=== PATIENT | male | born 1965 | race Two or more races ===

== ENCOUNTER 2025-09-26 18:13 | Emergency (ER) | payer MEDICAID ==
[~2025-09-26] VITALS: Ht 177.8 cm; Wt 73.0 kg
--- NOTE | 2025-09-26 19:16 | ED.PDOC ---
History of Present Illness(SKN HPI Comments 60 year-old male presents to the ED with a chief complaint of gangrene to the R foot, great toe. Patient reports X1 month ago being seen for a blood blister on the R great toe, where he was prescribed antibiotics and took them for about 1 week. Patient reports over the course of one month, gangrene has grown in size, as well as, increase R foot pain. Patient is able to ambulate at this time, using a cane to assist. Patient has no further complaints or modifying factors. REVIEW OF SYSTEMS: General: No fever, no chills, or fatigue HEENT: No sore throat, no earache, no congestion, no neck pain. Cardiac: No chest pain. No palpitations. Lungs: No shortness of breath, no cough. GI: No nausea, no vomiting, no diarrhea, no constipation, no abdominal pain : No dysuria, frequency, or urgency. No hematuria. Musculoskeletal: + joint pain , no joint swelling, no extremity edema. Skin: + R foot great toe necrotic. No rash, no itching. Neuro: No headache, no dizziness, no weakness (And as sated in HPI) PHYSICAL EXAM: General: Awake, alert and oriented. No acute distress. Skin: Skin in warm, dry and intact. Appropriate color for ethnicity. HEENT: The head is normocephalic and atraumatic. Conjunctivae are clear without exudates or hemorrhage. Sclera is non-icteric. Eyelids are normal in appearance without swelling or lesions. Oral mucosa is pink and moist Neck: The neck is supple with normal range of motion. No JVD. Cardiac: Heart rate and rhythm are normal. No murmurs, gallops, or rubs are auscultated. Respiratory: No signs of respiratory distress. Lung sounds are clear in all lobes bilaterally without rales, rhonchi, or wheezes. Abdominal: Abdomen is soft, non-tender without distention, guarding or rigidity. Bowel sounds are present and normoactive in all four quadrants. Extremities: (+) R foot, great toe necrotic. erythemitis, cool to touch, diminished DV pulses; sensation is intact in the R foot Neurological: The patient is awake, alert and oriented to person, place, and time with normal speech. Speech is clear. There is no facial asymmetry. Psychiatric: Appropriate mood and affect. Good judgement and insight. Chief Complaint: Wound Check Time Seen by MD: 18:40 History of Present Illness: Medications, Allergies Allergies: Coded Allergies: Codeine (Verified Allergy, Unknown, 09/26/25) Information Source: Patient Mode of Arrival: Ambulatory Severity: Moderate Duration: Since onset Mechanism: Spontaneous Onset Past Medical History PAST MEDICAL HISTORY: Asthma, COPD, Seizures Surgical History: Denies all surgeries Family History Family History: Reviewed,noncontributory to illness, No family hx of Cancer, No family hx of DM, No family hx of Heart magnolia, No family hx of HTN, No family hx ofKidney magnolia, No family hx of Liver magnolia, No family hx of Lung magnolia, No family hx of Stroke Social History Smoker: Unknown Alcohol: Unknown Drugs: Denies Drug Use Lives In: Home Was a procedure done? Was a procedure done?: No Differential Diagnosis (INTG) Differential Diagnosis: Cellulitis, Contact Dermatitis, Gangrene X-Ray, Labs, Meds, VS Vital Signs Date Time Temp Pulse Resp B/P (MAP) Pulse Ox O2 Delivery O2 Flow Rate FiO2 09/26/25 19:08 98.2 98 19 111/68 (82) 98 98.2 09/26/25 18:20 98.3 103 18 138/77 97 98.3 Lab Test 09/26/25 21:12 09/26/25 19:17 Range/Units Urine Color Light-yellow Yellow Urine Clarity Clear Clear Urine pH 7.0 5.0-9.0 Urine Specific [place] > 1.050 H 1.001-1.035 Urine Protein Negative Negative Urine Ketones Negative Negative Urine Blood Negative Negative /uL Urine Nitrite Negative Negative Urine Bilirubin Negative Negative Urine Urobilinogen Normal Negative mg/dL Urine Leukocyte Esterase Negative Negative /uL Urine RBC 2 0 - 3 /hpf Urine Microscopic WBC < 1 0-3 /HPF Urine Squamous Epithelial Cells None seen <5 /hpf Urine Bacteria Few H None Seen /hpf Urine Glucose Normal Normal mg/dL White Blood Count 11.1 H 4.4-10.8 10^3/uL Red Blood Count 5.30 4.5-5.90 10^6/uL Hemoglobin 17.0 13.5-17.5 g/dL Hematocrit 50.3 41.0-53.0 % Mean Corpuscular Volume 94.9 80.0-100.0 fL Mean Corpuscular Hemoglobin 32.1 H 28.0-32.0 pg Mean Corpuscular Hemoglobin Concent 33.8 32.0-36.0 g/dL Red Cell Distribution Width 12.9 11.8-14.3 % Platelet Count 248 140-450 10^3/uL Mean Platelet Volume 7.3 6.9-10.8 fL Neutrophils (%) (Auto) 73.1 37.0-80.0 % Lymphocytes (%) (Auto) 17.5 10.0-50.0 % Monocytes (%) (Auto) 6.9 0.0-12.0 % Eosinophils (%) (Auto) 1.9 0.0-7.0 % Basophils (%) (Auto) 0.6 0.0-2.0 % Neutrophils # (Auto) 8.1 1.6-8.6 10 ^3/uL Lymphocytes # (Auto) 1.9 0.4-5.4 10 ^3/uL Monocytes # (Auto) 0.8 0-1.3 10 ^3/uL Eosinophils # (Auto) 0.2 0-0.8 10 ^3/uL Basophils # (Auto) 0.1 0-0.2 10 ^3/uL Nucleated Red Blood Cells 0.0 % Platelet Estimate Adequate Red Blood Cell Morphology Normal Sodium Level 141 136-145 mmol/L Potassium Level 3.8 3.5-5.1 mmol/L Chloride Level 104 98-107 mmol/L Carbon Dioxide Level 29 20-31 mmol/L Anion Gap 8 5-15 Blood Urea Nitrogen 10 9-23 mg/dL Creatinine 1.11 0.700-1.30 mg/dL Glomerular Filtration Rate Calc 76 >90 mL/min BUN/Creatinine Ratio 9.0 L 10.0-20.0 Serum Glucose 84 74-106 mg/dL Lactic Acid Level 1.7 0.4-2.0 mmol/L Calcium Level 10.1 8.7-10.4 mg/dL Total Bilirubin 0.3 0.2-1.0 mg/dL Aspartate Amino Transferase (AST) 24 13-40 U/L Alanine Aminotransferase (ALT) 31 7-40 U/L Alkaline Phosphatase 108 46-116 U/L Total Protein 7.6 5.7-8.2 g/dL Albumin 4.7 3.2-4.8 g/dL Current Medications Medications (Trade) Dose Ordered Sig/Malcolm Route Start Time Stop Time Status Last Admin Sodium Chloride 1,000 ml @ 1,000 mls/hr Q1H ONCE IV 09/26/25 19:15 09/26/25 20:14 DC 09/26/25 19:32 Piperacillin Sod/ Tazobactam Sod 100 ml @ 100 mls/hr ONCE ONCE IV 09/26/25 19:15 09/26/25 20:14 DC 09/26/25 19:32 Vancomycin HCl 250 ml @ 250 mls/hr ONCE ONCE IV 09/26/25 19:15 09/26/25 20:14 DC 09/26/25 20:32 Lamotrigine (LaMICtal TABLET) 200 mg ONCE ONCE PO 09/26/25 21:30 09/26/25 21:31 DC 09/26/25 21:32 Levetiracetam (Keppra Tablet) 500 mg ONCE ONCE PO 09/26/25 21:30 09/26/25 21:31 DC 09/26/25 21:31 Acetaminophen/ Hydrocodone Bitart ([place] 10/325MG Tab) 1 tab ONCE ONCE PO 09/26/25 21:30 09/26/25 21:31 DC 09/26/25 21:32 Time of 1ST Reevaluation: 19:29 Reevaluation 1ST: Unchanged Patient Education/Counseling: Diagnosis, Treatment, Need For Follow Up Family Education/Counseling: No Family Present SEPSIS Sepsis Screen Date sepsis recognized/suspect: Sep 26, 2025 Time Sepsis recognized/suspect: 1819 Recent Procedure: No On Antibiotic Therapy: No Respiratory Rate >20: No Heart Rate >90: Yes (103) Temp<36 C (96.8 F) or >38.3 C: No SBP <90 or MAP <65 mmHG: No New Acute Mental Status Change: No Is the patient on CPAP, BIPAP,: No Physician Orders Vital Signs Q1HR (09/26/25 19:01) Saline Lock (09/26/25 19:01) Razor Sharpener (09/26/25 ) Rectal/Core Temps Only (09/26/25 19:01) Notify Md If Abnormal Vs (09/26/25 19:01) Blood Culture (09/26/25 19:01) Chest Xray 1 View (09/26/25 19:01) Ct Angio Lower Extremity (09/26/25 19:01) Sodium Chloride 0.9% (09/26/25 19:15) Vital Signs Date Time Temp Pulse Resp B/P (MAP) Pulse Ox O2 Delivery O2 Flow Rate FiO2 09/26/25 19:08 98.2 98 19 111/68 (82) 98 98.2 09/26/25 18:20 98.3 103 18 138/77 97 98.3 Laboratory Tests Test 09/26/25 19:17 Lactic Acid Level 1.7 mmol/L (0.4-2.0) White Blood Count 11.1 10^3/uL (4.4-10.8) H Medications Medications Dose Ordered Sig/Malcolm Route Start Time Stop Time Status Last Admin Dose Admin Acetaminophen/ Hydrocodone Bitart 1 tab ONCE ONCE PO 09/26/25 21:30 09/26/25 21:31 DC 09/26/25 21:32 Lamotrigine 200 mg ONCE ONCE PO 09/26/25 21:30 09/26/25 21:31 DC 09/26/25 21:32 Levetiracetam 500 mg ONCE ONCE PO 09/26/25 21:30 09/26/25 21:31 DC 09/26/25 21:31 Piperacillin Sod/ Tazobactam Sod 100 ml @ 100 mls/hr ONCE ONCE IV 09/26/25 19:15 09/26/25 20:14 DC 09/26/25 19:32 Sodium Chloride 1,000 ml @ 1,000 mls/hr Q1H ONCE IV 09/26/25 19:15 09/26/25 20:14 DC 09/26/25 19:32 Vancomycin HCl 250 ml @ 250 mls/hr ONCE ONCE IV 09/26/25 19:15 09/26/25 20:14 DC 09/26/25 20:32 Departure 1 Departure Time of Disposition: 22:39 Impression: Primary Impression: Necrosis of toe Additional Impression: Cellulitis Critical Care Note Critical Care Time?: No Stability Stability form required: No Heart Score Heart Score: Heart Score Response (Comments) Value History N/A 0 EKG N/A 0 Age N/A 0 Risk Factors N/A 0 Troponin N/A 0 Total 0 I personally scribed for ROMEL ISAAC MD ([email or web address]) on 09/26/25 at 19:16. Electronically submitted by Halie Banks ([email or web address]). I personally scribed for ROMEL ISAAC MD ([employer] MasterTARA) on 09/26/25 at 19:36. Electronically submitted by Halie Banks (NORI). I personally scribed for ROMEL ISAAC MD ([employer] MasterTARA) on 09/26/25 at 19:36. Electronically submitted by Halie Banks (NORI). ROMEL ISAAC MD Sep 26, 2025 19:16
[2025-09-26] MEDS: SODIUM CHLORIDE 0.9% 1,000 ML IV ONE ×2 (19:21→19:32)
[2025-09-26] MEDS: PIPERACILLIN-TAZOB 3.375GM 100 ML IV ONE (19:32)
[2025-09-26 19:45] LABS: Hematocrit 50.3 % (41.0-53.0); Hemoglobin 17.0 g/dL (13.5-17.5); Mean Corpuscular Hemoglobin 32.1 pg (28.0-32.0); Mean Corpuscular Volume 94.9 fL (80.0-100.0); Nucleated Red Blood Cells % 0.0 %
[2025-09-26 20:01] LABS: Alanine Aminotransferase 31 U/L (7-40); Albumin 4.7 g/dL (3.2-4.8); Alkaline Phosphatase 108 U/L (46-116); Anion Gap 8 (5-15); BUN/Creatinine Ratio 9.0 (10.0-20.0); Bilirubin, Total 0.3 mg/dL (0.2-1.0); Blood Urea Nitrogen 10 mg/dL (9-23); Calcium 10.1 mg/dL (8.7-10.4); Carbon Dioxide 29 mmol/L (20-31); Chloride 104 mmol/L (98-107); Glucose 84 mg/dL (74-106); Potassium 3.8 mmol/L (3.5-5.1); Sodium 141 mmol/L (136-145); Total Protein 7.6 g/dL (5.7-8.2)
[2025-09-26] MEDS: VANCOMYCIN 1GM/250ML KIT 250 ML IV ONE (20:02)
--- NOTE | 2025-09-26 20:54 | DVH ---
CHEST RADIOGRAPH INDICATION: Suspected Sepsis TECHNIQUE: Single frontal view of the chest was obtained COMPARISON: XR CHEST 2 VIEW on DOS: 08/15/25, CT CHEST WO on DOS: 06/08/24, XR CHEST 1 VIEW on DOS: 07/13/21 FINDINGS/IMPRESSION: There is prominence of the interstitial markings. Mildly enlarged cardiomediastinal silhouette. No pleural effusion or pneumothorax. No acute osseous abnormality.
[2025-09-26] MEDS: IOHEXOL 350 MG/ML 100ML IJ ONE (21:30)
[2025-09-26] MEDS: levETIRAcetam 500 MG TAB PO ONE (21:31)
[2025-09-26] MEDS: lamoTRIgine 100 MG TAB PO ONE (21:32)
[2025-09-26] MEDS: HYDROcodone-ACET 10/325MG TAB PO ONE (21:32)
[2025-09-26 21:38] LABS: Urine Protein, UAD Negative (Negative)
[2025-09-26 22:25] LABS: RBC Morphology Normal
--- NOTE | 2025-09-26 22:27 | DVH ---
CTA RIGHT LOWER EXTREMITY WITH CONTRAST INDICATION: Peripheral arterial disease. History of occluded external iliac and distal superficial femoral arteries. COMPARISON: No prior images are available for comparison. TECHNIQUE: Axial CT images of the abdomen and bilateral lower extremities are obtained at 1 mm collimation in the early arterial phase after intravenous contrast administration. Coronal maximum intensity projection (MIP) images are provided. 3-D images of the abdominal aorta and bilateral lower extremity arteries were constructed on an independent workstation. Radiation optimization: All CT scans at this facility use at least one of these dose optimization techniques: Automated exposure control mA and/or kV adjustment per patient size (includes targeted exams where dose is matched to clinical indication) or iterative reconstruction. CONTRAST: 100 mL omnipaque 350 RADIATION DOSE: CTDI: 36 mGy DLP: 1188 mGy-cm FINDINGS: Common iliac: Not included in the exam External iliac: Patent without hemodynamically significant stenosis. Supplied by inferior epigastric and obturator arteries. Internal iliac: Patent without hemodynamically significant stenosis. 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 SFA: The proximal and middle portions are patent without hemodynamically significant stenosis. There is chronic appearing occlusion of the distal SFA at the entrance to the adductor canal. Profunda Femoris: Patent without hemodynamically significant stenosis. Popliteal: Patent without hemodynamically significant stenosis. Reconstituted from collaterals upon emergence from the adductor canal. No aneurysm or abnormal medial deviation is noted. Anterior Tibial: Patent without hemodynamically significant stenosis. Tibioperoneal Trunk: Patent without hemodynamically significant stenosis. Peroneal: Patent without hemodynamically significant stenosis. Posterior Tibial: Patent without hemodynamically significant stenosis. Dorsalis Pedis: The proximal portion is patent without hemodynamically significant stenosis. The more distal portion is not well evaluated due to motion artifact. The common and lateral plantar arteries are patent. ADDITIONAL FINDINGS: No acute abnormality is identified in the visualized portion of the pelvis. No acute osseous abnormality is identified. IMPRESSION: Occluded right external iliac artery. The common femoral artery is supplied by inferior epigastric and obturator arteries. Approximately 2-3 cm chronic appearing occlusion of the distal SFA/proximal popliteal artery within the adductor canal. No significant stenosis is identified below the knee.
[2025-09-26] MEDS ORDERED: IPRATROPIUM BROM 0.5 MG/2.5ML INH SOL NEB PRN (23:30)
[2025-09-26] MEDS ORDERED: MORPHINE SULFATE INJ 2 MG/ml SYRG IV PRN ×2 (23:30)
[2025-09-26] MEDS ORDERED: ALBUTEROL SULF 2.5 MG/0.5ML(0.5%) NEB SOLN NEB PRN (23:30)
[2025-09-26] MEDS ORDERED: DOCUSATE SOD 100 MG CAP PO PRN (23:30)
[2025-09-26] MEDS ORDERED: ACETAMINOPHEN 325 MG TAB PO PRN (23:30)
[2025-09-26] MEDS ORDERED: NITROGLYCERIN 0.4 MG SL TAB SL PRN (23:30)
--- NOTE | 2025-09-26 23:40 | DVHHP2 ---
History of Present Illness Reason for Visit: Necrosis of toe History of Present Illness The patient is a 60-year-old male with past medical history of asthma, COPD, and seizures who presented to [facility] ED with complaint of right foot gangrene. Patient reports that he notice blood blister on his right great toe 1 month ago and was prescribed oral antibiotic regimen for 1 week. Patient reports over the course of 1 month, gangrene has grown in size, increased right foot pain, getting worse that prompted this visit. Patient reports that he had vascular surgery appointment outpatient due to poor blood flow to his right lower extremity. Patient was seen and evaluated in the ED, laboratory data shows WBC 11.1, platelets 248, sodium 141, potassium 3.8, BUN 10, creatinine 1.11, GFR 76, glucose 84, calcium 10.1, blood pressure 111/68, heart rate 98, temperature 98.2 F, O2 saturation 98% on room air. Lower extremity CT a revealing occluded right external iliac artery; the common femoral artery is supplied by inferior epigastric obturator arteries; a proximally 2-3 cm chronic appearing occlusion of the distal SFA/proximal popliteal artery within the abductor cannula; no significant stenosis is identified below the knee. Patient was started on IV antibiotic regimen vancomycin, please see medication orders section in the compu ter. On my assessment, patient denied chest pain, no headache, dizziness, diaphoresis, shortness of breaths, no diarrhea, nausea, vomiting, fever, no chills. Patient was admitted for further evaluation and medical management. Past Medical History Asthma, COPD, Seizures Past Surgical History Denies all surgeries Family History Reviewed, noncontributory to the management of this case. Past Social History The patient lives at home, denies smoking, alcohol or illicit drugs abuse. Review of Systems Constitutional: Yes: Weakness; No: Fever, Chills, Sweats, Malaise, Other Eyes: No: Pain, Vision change, Conjunctivae inflammation, Eyelid inflammation, Other, Redness ENT: No: Ear pain, Ear discharge, Nose pain, Nose discharge, Nose congestion, Mouth pain, Mouth swelling, Throat pain, Throat swelling, Other Respiratory: No: Cough, Dry, Shortness of breath, SOB with excertion, Wheezing, Hemoptysis, Pleuritic Pain, Sputum, Wheezing, Other Cardiovascular: No: Chest Pain, Palpitations, Orthopnea, Paroxysmal Noc. Dyspnea, Edema, Lt Headedness, Other Gastrointestinal: No: Nausea, Vomiting, Abdominal Pain, Diarrhea, Constipation, Melena, Hematochezia, Other Genitourinary: No Dysuria, No Frequency, No Incontinence, No Hematuria, No Retention, No Other Musculoskeletal: No: other, neck pain, shoulder pain, arm pain, back pain, hand pain, leg pain, foot pain Skin: Other (Right foot gangrene); No: Rash, Lesions, Jaundice, Bruising Neurological: No: Weakness, Numbness, Incoordination, Change in speech, Confusion, Seizures, Other Allergies: Coded Allergies: Codeine (Verified Allergy, Unknown, 09/26/25) Exam Vital Signs Vital Signs Date Time Temp Pulse Resp B/P (MAP) Pulse Ox O2 Delivery O2 Flow Rate FiO2 09/26/25 19:08 98.2 98 19 111/68 (82) 98 98.2 General Appearance: Alert, Oriented X3, Cooperative, No acute distress HEENT: Atraumatic, PERRLA, EOMI, Mucous membr. moist/pink Respiratory: Clear to auscultation, Normal air movement Cardiovascular: Regular rate, Normal S1, Normal S2, No murmurs Abdominal: Normal bowel sounds, Soft, No tenderness, No hepatospenomegaly, No masses Extremities: No clubbing, No cyanosis, No edema, Normal pulses, No tenderness/swelling Skin: No rashes, No significant lesion Neuro: Normal speech, Normal tone, Sensation intact, Cranial nerves 3-12 NL, Reflexes 2+, Other (Generalized weakness) Psych/Mental Status: Mental status NL, Mood NL Labs/Xrays Labs Test 09/26/25 21:12 09/26/25 19:17 Range/Units Urine Color Light-yellow Yellow Urine Clarity Clear Clear Urine pH 7.0 5.0-9.0 Urine Specific [place] > 1.050 H 1.001-1.035 Urine Protein Negative Negative Urine Ketones Negative Negative Urine Blood Negative Negative /uL Urine Nitrite Negative Negative Urine Bilirubin Negative Negative Urine Urobilinogen Normal Negative mg/dL Urine Leukocyte Esterase Negative Negative /uL Urine RBC 2 0 - 3 /hpf Urine Microscopic WBC < 1 0-3 /HPF Urine Squamous Epithelial Cells None seen <5 /hpf Urine Bacteria Few H None Seen /hpf Urine Glucose Normal Normal mg/dL White Blood Count 11.1 H 4.4-10.8 10^3/uL Red Blood Count 5.30 4.5-5.90 10^6/uL Hemoglobin 17.0 13.5-17.5 g/dL Hematocrit 50.3 41.0-53.0 % Mean Corpuscular Volume 94.9 80.0-100.0 fL Mean Corpuscular Hemoglobin 32.1 H 28.0-32.0 pg Mean Corpuscular Hemoglobin Concent 33.8 32.0-36.0 g/dL Red Cell Distribution Width 12.9 11.8-14.3 % Platelet Count 248 140-450 10^3/uL Mean Platelet Volume 7.3 6.9-10.8 fL Neutrophils (%) (Auto) 73.1 37.0-80.0 % Lymphocytes (%) (Auto) 17.5 10.0-50.0 % Monocytes (%) (Auto) 6.9 0.0-12.0 % Eosinophils (%) (Auto) 1.9 0.0-7.0 % Basophils (%) (Auto) 0.6 0.0-2.0 % Neutrophils # (Auto) 8.1 1.6-8.6 10 ^3/uL Lymphocytes # (Auto) 1.9 0.4-5.4 10 ^3/uL Monocytes # (Auto) 0.8 0-1.3 10 ^3/uL Eosinophils # (Auto) 0.2 0-0.8 10 ^3/uL Basophils # (Auto) 0.1 0-0.2 10 ^3/uL Nucleated Red Blood Cells 0.0 % Platelet Estimate Adequate Red Blood Cell Morphology Normal Sodium Level 141 136-145 mmol/L Potassium Level 3.8 3.5-5.1 mmol/L Chloride Level 104 98-107 mmol/L Carbon Dioxide Level 29 20-31 mmol/L Anion Gap 8 5-15 Blood Urea Nitrogen 10 9-23 mg/dL Creatinine 1.11 0.700-1.30 mg/dL Glomerular Filtration Rate Calc 76 >90 mL/min BUN/Creatinine Ratio 9.0 L 10.0-20.0 Serum Glucose 84 74-106 mg/dL Lactic Acid Level 1.7 0.4-2.0 mmol/L Calcium Level 10.1 8.7-10.4 mg/dL Total Bilirubin 0.3 0.2-1.0 mg/dL Aspartate Amino Transferase (AST) 24 13-40 U/L Alanine Aminotransferase (ALT) 31 7-40 U/L Alkaline Phosphatase 108 46-116 U/L Total Protein 7.6 5.7-8.2 g/dL Albumin 4.7 3.2-4.8 g/dL PATIENT: NELLY BATRES ACCT: [id number] UNIT: [id number] : 1965 LOC: ER ROOM / BED: / AGE / SEX: 60 / M ADM STATUS: REG ER SERVICE 00 ORDERING PHYSICIAN: ROMEL ISAAC MD PROCEDURE(s): CTALE - CT ANGIO LOWER EXTREMITY REASON: RLE ORDER NUMBER(s): [id number], ACCESSION NUMBER(s): [id number] CTA RIGHT LOWER EXTREMITY WITH CONTRAST INDICATION: Peripheral arterial disease. History of occluded external iliac and distal superficial femoral arteries. COMPARISON: No prior images are available for comparison. TECHNIQUE: Axial CT images of the abdomen and bilateral lower extremities are obtained at 1 mm collimation in the early arterial phase after intravenous contrast administration. Coronal maximum intensity projection (MIP) images are provided. 3-D images of the abdominal aorta and bilateral lower extremity arteries were constructed on an independent workstation. Radiation optimization: All CT scans at this facility use at least one of these dose optimization techniques: Automated exposure control mA and/or kV adjustment per patient size (includes targeted exams where dose is matched to clinical indication) or iterative reconstruction. CONTRAST: 100 mL omnipaque 350 RADIATION DOSE: CTDI: 36 mGy DLP: 1188 mGy-cm FINDINGS: Common iliac: Not included in the exam External iliac: Patent without hemodynamically significant stenosis. Supplied by inferior epigastric and obturator arteries. Internal iliac: Patent without hemodynamically significant stenosis. MACHINE OPERATOR ASSISTANT: Patent without hemodynamically significant stenosis. SFA: The proximal and middle portions are patent without hemodynamically significant stenosis. There is chronic appearing occlusion of the distal SFA at the entrance to the adductor canal. Profunda Femoris: Patent without hemodynamically significant stenosis. Popliteal: Patent without hemodynamically significant stenosis. Reconstituted from collaterals upon emergence from the adductor canal. No aneurysm or abnormal medial deviation is noted. Anterior Tibial: Patent without hemodynamically significant stenosis. Tibioperoneal Trunk: Patent without hemodynamically significant stenosis. Peroneal: Patent without hemodynamically significant stenosis. Posterior Tibial: Patent without hemodynamically significant stenosis. Dorsalis Pedis: The proximal portion is patent without hemodynamically significant stenosis. The more distal portion is not well evaluated due to motion artifact. The common and lateral plantar arteries are patent. ADDITIONAL FINDINGS: No acute abnormality is identified in the visualized portion of the pelvis. No acute osseous abnormality is identified. IMPRESSION: Occluded right external iliac artery. The common femoral artery is supplied by inferior epigastric and obturator arteries. Approximately 2-3 cm chronic appearing occlusion of the distal SFA/proximal popliteal artery within the adductor canal. No significant stenosis is identif ied below the knee. ORDERING PHYSICIAN: ROMEL ISAAC MD PROCEDURE(s): CXR1 - CHEST XRAY 1 VIEW REASON: Suspected Sepsis ORDER NUMBER(s): [id number], ACCESSION NUMBER(s): [id number] CHEST RADIOGRAPH INDICATION: Suspected Sepsis TECHNIQUE: Single frontal view of the chest was obtained COMPARISON: XR CHEST 2 VIEW on DOS: 08/15/25, CT CHEST WO on DOS: 06/08/24, XR CHEST 1 VIEW on DOS: 07/13/21 FINDINGS/IMPRESSION: There is prominence of the interstitial markings. Mildly enlarged cardiomediastinal silhouette. No pleural effusion or pneumothorax. No acute osseous abnormality. SEPSIS Sepsis Screen Date sepsis recognized/suspect: Sep 26, 2025 Time Sepsis recognized/suspect: 1907 Recent Procedure: No On Antibiotic Therapy: Yes Respiratory Rate >20: No Heart Rate >90: Yes Temp<36 C (96.8 F) or >38.3 C: No SBP <90 or MAP <65 mmHG: No New Acute Mental Status Change: No Is the patient on CPAP, BIPAP,: No Physician Orders Vital Signs Q1HR (09/26/25 19:01) Saline Lock (09/26/25 19:01) Industrial Aerial Installer (09/26/25 ) Rectal/Core Temps Only (09/26/25 19:01) Notify Md If Abnormal Vs (09/26/25 19:01) Blood Culture (09/26/25 19:01) Chest Xray 1 View (09/26/25 19:01) Ct Angio Lower Extremity (09/26/25 19:01) Sodium Chloride 0.9% (09/26/25 19:15) Gabapentin Capsule (Neurontin Capsule) (09/27/25 06:00) Levetiracetam Ivpb Keppra (09/27/25 10:00) Ceftriaxone Ivpb Rocephin (09/27/25 09:00) Albuterol Medneb (Ventolin Medneb) (09/26/25 23:30) Ipratropium Medneb (Atrovent Medneb) (09/26/25 23:30) Admit (09/26/25:) Allergies (09/26/25:) Code Status (09/26/25:) Sodium Chloride Lock (Saline Lock Ns) (09/27/25 06:00) Oxygen Per Hour (09/26/25:) Ondansetron Hcl (Zofran) (09/26/25 23:30) Docusate Sodium Capsule (Colace Capsule) (09/26/25 23:30) Complete Blood Count (09/27/25 04:00) Comprehensive Metabolic Panel (09/27/25 04:00) Cardiac Diet-2gna,Lofat,Lochol (09/27/25 Breakfast) Condition: Serious (09/26/25 23:28) Acetaminophen Tablet (Tylenol Tablet) (09/26/25 23:30) Bedrest With Bathroom Privileg (09/26/25:) Morphine Sulfate Injection (09/26/25 23:30) Nitroglycerin Sublingual (Ntrostat Subli (09/26/25 23:30) Morphine Sulfate Injection (09/26/25 23:30) Stat Ekg For Chest Pain (09/26/25:28) Notify Md Of Changes From Base (09/26/25 23:28) Welding Estimator 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 Hours (09/26/25 23:28) Emergency Dysrhythmia Protocol (09/26/25:) Rhythm Strips Once Every Shift (09/26/25 23:) Oxygen By Nasal Cannula (09/26/25:) Vital Signs Date Time Temp Pulse Resp B/P (MAP) Pulse Ox O2 Delivery O2 Flow Rate FiO2 09/26/25 19:08 98.2 98 19 111/68 (82) 98 98.2 09/26/25 18:20 98.3 103 18 138/77 97 98.3 Laboratory Tests Test 09/26/25 19:17 Lactic Acid Level 1.7 mmol/L (0.4-2.0) White Blood Count 11.1 10^3/uL (4.4-10.8) H Medications Medications Dose Ordered Sig/Malcolm Route Start Time Stop Time Status Last Admin Dose Admin Acetaminophen/ Hydrocodone Bitart 1 tab ONCE ONCE PO 09/26/25 21:30 09/26/25 21:31 DC 09/26/25 21:32 1 TAB Lamotrigine 200 mg ONCE ONCE PO 09/26/25 21:30 09/26/25 21:31 DC 09/26/25 21:32 200 MG Levetiracetam 500 mg ONCE ONCE PO 09/26/25 21:30 09/26/25 21:31 DC 09/26/25 21:31 500 MG Piperacillin Sod/ Tazobactam Sod 100 ml @ 100 mls/hr ONCE ONCE IV 09/26/25 19:15 09/26/25 20:14 DC 09/26/25 19:32 100 MLS/HR Sodium Chloride 1,000 ml @ 1,000 mls/hr Q1H ONCE IV 09/26/25 19:15 09/26/25 20:14 DC 09/26/25 19:32 1,000 MLS/HR Vancomycin HCl 250 ml @ 250 mls/hr ONCE ONCE IV 09/26/25 19:15 09/26/25 20:14 DC 09/26/25 20:32 250 MLS/HR Assessment/Plan Assessment/Plan Necrosis of toe Cellulitis of right foot Generalized weakness Chronic occlusion of artery of extremity Plan 1. Admit to telemetry unit 2. Breathing treatment 3. Pain control management 4. IV antibiotic management 5. Management of fluids and electrolytes 6. Consultation for vascular/hospitalist/wound care 7. Diagnostic test lower extremity CTA 8. DVT prophylaxis-on heparin 9. Repeat labs CBC, CMP in a.m. 10. Home medication reviewed and reconciled 11. Continue with current medical management 12. Treatment plan discussed with patient and RN. Patient was transferred to [facility]. Plan discussed with: Patient, Other (RN) My Orders Orders - CAITY FRANK DNP Procedure Category Date Status Time Gabapentin Capsule PHA 09/27/25 Verified (Neurontin Capsule) 06:00 Levetiracetam Ivpb PHA 09/27/25 Verified Keppra 10:00 Ceftriaxone Ivpb PHA 09/27/25 Verified Rocephin 09:00 Albuterol Medneb PHA 09/26/25 Verified (Ventolin Medneb) 23:30 Ipratropium Medneb PHA 09/26/25 Verified (Atrovent Medneb) 23:30 Admit ADMIT 09/26/25 Verified 23:28 Allergies [facility] 09/26/25 Verified 23:28 Code Status CODE 09/26/25 Verified 23:28 Sodium Chloride Lock PHA 09/27/25 Verified (Saline Lock Ns) 06:00 Oxygen Per Hour RT 09/26/25 Verified 23:28 Ondansetron Hcl PHA 09/26/25 Verified (Zofran) 23:30 Docusate Sodium [facility] 09/26/25 Verified Capsule (Colace 23:30 Complete Blood Count LAB 09/27/25 Verified 04:00 Comprehensive LAB 09/27/25 Verified Metabolic Panel 04:00 Cardiac DIET 09/27/25 Verified Diet-2gna,Lofat,Lochol Breakfast Condition: Serious [facility] 09/26/25 Verified 23:28 Acetaminophen Tablet [facility] 09/26/25 Verified (Tylenol Tablet) 23:30 Bedrest With Bathroom [facility] 09/26/25 Verified Privileg 23:28 Morphine Sulfate [facility] 09/26/25 Verified Injection 23:30 Nitroglycerin [facility] 09/26/25 Verified Sublingual (Ntrostat 23:30 Morphine Sulfate [facility] 09/26/25 Verified Injection 23:30 Stat Ekg For Chest [facility] 09/26/25 Verified Pain 23:28 Notify Md Of Changes [facility] 09/26/25 Verified From Base 23:28 Welding Estimator For [facility] 09/26/25 Verified 24 Hours 23:28 Emergency Dysrhythmia [facility] 09/26/25 Verified Protocol 23:28 Rhythm Strips Once [facility] 09/26/25 Verified Every Shift 23:28 Oxygen By Nasal RT 09/26/25 Verified Cannula 23:28 Problem List: (1) Necrosis of toe (2) Cellulitis of right foot (3) Generalized weakness (4) Chronic occlusion of artery of extremity Date of Service: Sep 26, 2025 Billing Provider: CAITY FRANK DNP Common Visit Codes: [id number] INP/OBS CARE (HIGH) CAITY FRANK DNP Sep 26, 2025 23:40
[2025-09-26 23:46] VITALS: BP 111/68; PULSE 98; RESP 19; TEMP 98.2; O2SAT 98
[2025-09-27] MEDS: MORPHINE SULFATE 4 MG/ML SYR/VIAL ONE (00:12)
[2025-09-27] MEDS: MORPHINE SULFATE 4 MG/ML SYR/VIAL IV PRN (00:15)
[2025-09-27] MEDS: ONDANSETRON HCL 4 MG/2 ML VIAL IV PRN (00:15)
[2025-09-27] MEDS ORDERED: VANCOMYCIN PER PHARMACY 0 MG IV SCH (00:30)
[2025-09-27 05:28] VITALS: O2SAT 94
[2025-09-27] MEDS ORDERED: GABAPENTIN 300 MG CAP PO SCH (06:00)
[2025-09-27] MEDS: GABAPENTIN 300 MG CAP PO SCH (06:20)
[2025-09-27] MEDS: HYDROcodone-ACET 10/325MG TAB PO ONE (06:21)
[2025-09-27] MEDS: SODIUM CHLOR 0.9% PF (SALINE LOCK) 10ML VIAL/SYR IV SCH (06:24)
[2025-09-27] MEDS: GABAPENTIN 300 MG CAP ONE (06:24)
[2025-09-27 07:36] LABS: Alanine Aminotransferase 30 U/L (7-40); Alkaline Phosphatase 92 U/L (46-116); Anion Gap 5 (5-15); BUN/Creatinine Ratio 15.0 (10.0-20.0); Blood Urea Nitrogen 15 mg/dL (9-23); Calcium 9.2 mg/dL (8.7-10.4); Carbon Dioxide 26 mmol/L (20-31); Chloride 104 mmol/L (98-107); Glucose 103 mg/dL (74-106); Potassium 3.8 mmol/L (3.5-5.1); Total Protein 6.8 g/dL (5.7-8.2)
[2025-09-27 07:37] LABS: Albumin 4.1 g/dL (3.2-4.8); Bilirubin, Total 0.5 mg/dL (0.2-1.0)
[2025-09-27 07:38] LABS: Sodium 135 mmol/L (136-145)
[2025-09-27 07:39] LABS: Hematocrit 48.2 % (41.0-53.0); Hemoglobin 15.5 g/dL (13.5-17.5); Mean Corpuscular Hemoglobin 30.9 pg (28.0-32.0); Mean Corpuscular Volume 95.8 fL (80.0-100.0); Nucleated Red Blood Cells % 0.1 %
[2025-09-27 08:51] VITALS: BP 149/84; TEMP 97.6
[2025-09-27 08:56] VITALS: PULSE 90; RESP 18; O2SAT 97
[2025-09-27] MEDS ORDERED: VANCOMYCIN 750MG KIT 100 ML IV SCH (09:00)
[2025-09-27] MEDS ORDERED: MORPHINE SULFATE 4 MG/ML SYR/VIAL IV PRN (09:15)
[2025-09-27] MEDS ORDERED: levETIRAcetam 500 mg/100ml 100 ML IV SCH (10:00)
== END 2025-09-27 09:05 | disposition short-term general hospital (02) ==
LOC: ER 18:13 → OVERFLOW 23:28 → UNDOADMIN 23:28 → ER 09-27 09:05
DX: L03.115 Cellulitis of right lower limb (principal); M87.079 Idiopathic aseptic necrosis of unspecified toe(s); Z88.5 Allergy status to narcotic agent; Z79.899 Other long term (current) drug therapy
CPT/HCPCS: 36415; 71045; 73706; 80053; 81001; 83605; 85025; 87040; 96365; 96366; 96368; 96375; 99285; J2270; J2405; J2543; J3373; Q9967